=== PATIENT | male | born 1960 | race Two or more races ===

== ENCOUNTER 2017-09-22 11:24 | Emergency (ER) | payer MEDICAID ==
[~2017-09-22] VITALS: Ht 172.7 cm; Wt 79.4 kg
[2017-09-22 14:35] VITALS: BP 140/81
[2017-09-22] MEDS ORDERED: BACITRACIN TOP OINT 1 UD PKG TOP ONE (15:00)
[2017-09-22] MEDS ORDERED: LIDOCAINE 1% (LOCAL ANESTH.) PF 5ml SDV ID ONE (15:00)
[2017-09-22] MEDS ORDERED: LIDOCAINE 1% HCL (LOCAL ANESTH.) INJ 20ML MDV ONE (15:38)
== END 2017-09-22 15:48 | disposition home or self-care (01) ==
LOC: ER 11:27
DX: S61.411A Laceration without foreign body of right hand, initial encounter (principal); W22.8XXA Striking against or struck by other objects, initial encounter; Y93.89 Activity, other specified; Y99.8 Other external cause status; Y92.89 Other specified places as the place of occurrence of the external cause
CPT/HCPCS: 12001; 73130; 99284; J2001